=== PATIENT | female | born 1970 | race Hispanic/Latino ===

== ENCOUNTER 2020-07-23 14:15 | Emergency (ER) | payer SELFPAY ==
[2020-07-23] MEDS ORDERED: ACETAMINOPHEN EXTRA STRENGTH 500 MG TABLET ONE (14:39)
== END 2020-07-23 15:46 | disposition home or self-care (01) ==
LOC: EDH 14:15
DX: S63.502A Unspecified sprain of left wrist, initial encounter (principal); S56.912A Strain of unspecified muscles, fascia and tendons at forearm level, left arm, initial encounter; Z98.890 Other specified postprocedural states; W01.0XXA Fall on same level from slipping, tripping and stumbling without subsequent striking against object, initial encounter; Y93.89 Activity, other specified; Y92.89 Other specified places as the place of occurrence of the external cause; Y99.8 Other external cause status
CPT/HCPCS: 29125; 73090; 73110; 81025

== ENCOUNTER 2021-01-01 10:39 | Emergency (ER) | payer OTHER | END 2021-01-01 11:10 | disposition left against medical advice (07) | LOC: EDH 10:39 | DX: Z20.822 Contact with and (suspected) exposure to COVID-19 (principal); Z53.21 Procedure and treatment not carried out due to patient leaving prior to being seen by health care provider ==